=== PATIENT | female | born 1980 | race Caucasian/White ===

== ENCOUNTER 2024-05-16 14:50 | Emergency (ER) | payer OTHER, SELFPAY ==
--- NOTE | ~2024-05-16 | CT_ITS ---
EXAMINATION: CT HEAD WITHOUT CONTRAST CT CERVICAL SPINE WITHOUT CONTRAST CT FACIAL BONES WITHOUT CONTRAST CLINICAL INFORMATION: Fall with head strike COMPARISON: None TECHNIQUE: A noncontrast CT of the head and a noncontrast CT of the cervical spine with sagittal and coronal reformats. Noncontrast CT of the facial bones with sagittal and coronal reformats. This CT examination was performed using dose optimization techniques as appropriate, variously including the following: *Automated exposure control *Adjustment of mA and/or kV according to patient size (this includes techniques or standardized protocols for targeted exams where dose is matched to indication/reason for exam; i.e. extremities or head) *Use of iterative reconstruction technique DLP: 664 mGy*cm FINDINGS: No intra-axial or extra-axial hemorrhage. No acute territorial infarct. Ventricles and sulci appear normal. Preservation of han-white matter differentiation. No mass, mass effect, or midline shift. No fracture. Polypoid mucosal thickening in the maxillary sinuses. The mastoid air cells and visualized paranasal sinuses are otherwise clear. No facial bone fracture. The ostiomeatal units are patent. Normal alignment of the cervical spine. No fracture. No prevertebral soft tissue swelling. Mild multilevel degenerative disc disease and facet arthrosis. Changes are most prominent at the anterior atlantoaxial junction. There is an 8mm oval-shaped calcification at the right anterior aspect between the dens and the anterior arch of C1, possibly representing calcium pyrophosphate crystal deposition (CPPD).. CT/CT head/brain wo IV con IMPRESSION: 1. No acute intracranial abnormality. 2. No facial bone fracture. 3. No cervical spine fracture or traumatic subluxation. Electronically signed by: Jarad Lozoya MD 05/16/2024 05:15 PM [facility]
--- NOTE | ~2024-05-16 | CT_ITS ---
EXAMINATION: CT HEAD WITHOUT CONTRAST CT CERVICAL SPINE WITHOUT CONTRAST CT FACIAL BONES WITHOUT CONTRAST CLINICAL INFORMATION: Fall with head strike COMPARISON: None TECHNIQUE: A noncontrast CT of the head and a noncontrast CT of the cervical spine with sagittal and coronal reformats. Noncontrast CT of the facial bones with sagittal and coronal reformats. This CT examination was performed using dose optimization techniques as appropriate, variously including the following: *Automated exposure control *Adjustment of mA and/or kV according to patient size (this includes techniques or standardized protocols for targeted exams where dose is matched to indication/reason for exam; i.e. extremities or head) *Use of iterative reconstruction technique DLP: 664 mGy*cm FINDINGS: No intra-axial or extra-axial hemorrhage. No acute territorial infarct. Ventricles and sulci appear normal. Preservation of han-white matter differentiation. No mass, mass effect, or midline shift. No fracture. Polypoid mucosal thickening in the maxillary sinuses. The mastoid air cells and visualized paranasal sinuses are otherwise clear. No facial bone fracture. The ostiomeatal units are patent. Normal alignment of the cervical spine. No fracture. No prevertebral soft tissue swelling. Mild multilevel degenerative disc disease and facet arthrosis. Changes are most prominent at the anterior atlantoaxial junction. There is an 8mm oval-shaped calcification at the right anterior aspect between the dens and the anterior arch of C1, possibly representing calcium pyrophosphate crystal deposition (CPPD).. CT/CT facial bones wo IV con IMPRESSION: 1. No acute intracranial abnormality. 2. No facial bone fracture. 3. No cervical spine fracture or traumatic subluxation. Electronically signed by: Jarad Lozoya MD 05/16/2024 05:15 PM [facility]
--- NOTE | ~2024-05-16 | CT_ITS ---
EXAMINATION: CT HEAD WITHOUT CONTRAST CT CERVICAL SPINE WITHOUT CONTRAST CT FACIAL BONES WITHOUT CONTRAST CLINICAL INFORMATION: Fall with head strike COMPARISON: None TECHNIQUE: A noncontrast CT of the head and a noncontrast CT of the cervical spine with sagittal and coronal reformats. Noncontrast CT of the facial bones with sagittal and coronal reformats. This CT examination was performed using dose optimization techniques as appropriate, variously including the following: *Automated exposure control *Adjustment of mA and/or kV according to patient size (this includes techniques or standardized protocols for targeted exams where dose is matched to indication/reason for exam; i.e. extremities or head) *Use of iterative reconstruction technique DLP: 664 mGy*cm FINDINGS: No intra-axial or extra-axial hemorrhage. No acute territorial infarct. Ventricles and sulci appear normal. Preservation of han-white matter differentiation. No mass, mass effect, or midline shift. No fracture. Polypoid mucosal thickening in the maxillary sinuses. The mastoid air cells and visualized paranasal sinuses are otherwise clear. No facial bone fracture. The ostiomeatal units are patent. Normal alignment of the cervical spine. No fracture. No prevertebral soft tissue swelling. Mild multilevel degenerative disc disease and facet arthrosis. Changes are most prominent at the anterior atlantoaxial junction. There is an 8mm oval-shaped calcification at the right anterior aspect between the dens and the anterior arch of C1, possibly representing calcium pyrophosphate crystal deposition (CPPD).. CT/CT cervical spine wo IV con IMPRESSION: 1. No acute intracranial abnormality. 2. No facial bone fracture. 3. No cervical spine fracture or traumatic subluxation. Electronically signed by: Jarad Lozoya MD 05/16/2024 05:15 PM [facility]
[2024-05-16 14:55] VITALS: BP 164/99; PULSE 93; RESP 20; TEMP 36.5; O2SAT 99; BMI 29.3
--- NOTE | 2024-05-16 14:55 | ED_ITS ---
HPI - General Adult General Chief complaint: Fall Stated complaint: facial inj, UC sent for CT scan Time Seen by Provider: 05/16/24 18:15 Source: patient Mode of arrival: ambulatory Limitations: no limitations History of Present Illness ED Provider: Kiera Vaughn PA-C HPI narrative: Patient is a 43 year old assigned female at with no reported medical history presenting to the emergency department today with nasal abrasions. Patient states that last night she was sleeping and fell off her couch, landing on her face. Patient denies any dizziness, lightheadedness, abdominal pain, nausea, vomiting, fever, chills, blurry vision, double vision, loss of vision, chest pain, difficulty breathing, shortness of breath, back pain, night sweats, pain with urination, increased urinary frequency, increased urinary urgency, blood in her urine or stool, syncope or a near syncopal episode, bowel incontinence, bladder incontinence, or any other complaints at this time. Relieving factors: none Exacerbating factors: none Associated symptoms: denies other symptoms Treatments prior to arrival: none Related Data Allergies Allergy/AdvReac Type Severity Reaction Status Date / Time No Known Allergies Allergy Mild UNKNOWN Verified 05/16/24 14:57 Review of Systems Constitutional: Constitutional: Reports no additional constitutional complaints, Denies chills, Denies fever(s) and Denies night sweats Eyes: Eyes: Reports no additional eye complaints, Denies blurry vision, Denies change in vision, Denies diplopia, Denies eye discharge, Denies loss of vision and Denies eye pain ENT: Denies dizziness and Reports nasal trauma Comments: nasal abrasions Cardiovascular: Cardiovascular: Reports no additional cardiovascular complaints, Denies chest pain, Denies lightheadedness, Denies Loss of Consciousness and Denies dyspnea Respiratory: Respiratory: Reports no additional respiratory complaints and Denies dyspnea Gastrointestinal: Gastrointestinal: Reports no additional gastrointestinal complaints, Denies abdominal pain, Denies melena, Denies hematochezia, Denies change in bowel habits and Denies change in stool character Genitourinary: Genitourinary: Denies hematuria, Denies urinary frequency, Denies dysuria, Denies urinary incontinence, Denies urinary hesitancy and Denies urinary urgency Musculoskeletal: Musculoskeletal: Reports no additional musculoskeletal complaints, Denies numbness and Denies tingling Neurologic: Denies dizziness, Denies loss of vision, Denies numbness and Yunior es tingling Psychiatric: Psychiatric: Reports no additional psychiatric complaints Endocrine: Endocrine: Reports no additional endocrine complaints Hematologic/Lymphatic: Hematologic/Lymphatic: Reports no additional hematologic/lymphatic complaints Allergic/Immunologic: Allergic/Immunologic: Reports no additional allergic/immunologic complaints PMFSH Past Medical History Attestation statement: The following information was validated with the patient. Source: old records reviewed and nursing notes reviewed Social History Social History Advance Directives: No Advance Directives Information Provided: No Physical Exam ED Vital Signs: Vital Signs - 24 hr 05/16/24 14:55 05/16/24 18:00 Temperature 97.7 F 98.3 F Pulse Rate 93 88 Respiratory Rate 20 16 Blood Pressure 164/99 H 152/92 H Pulse Oximetry 99 99 Oxygen Delivery Method Room Air Room Air BMI result Body Mass Index 29.3 Const General: cooperative, no acute distress, alert and awake Nutritional Appearance: well nourished Orientation/consciousness: patient oriented x3 Limitations: no limitations HENMT Head: Yes normal to inspection and Yes atraumatic Ears: hearing grossly normal bilaterally and external ears normal General nose exam: no nasal discharge noted, no epistaxis and Other nasal findings present (multiple abrasions to the nose - no active bleeding or gaping) Face and sinus: Yes normal facial exam, No abrasion and No laceration Mouth: Normal oral and palatal mucosa present, no drooling and no muffled voice Eyes General: appearance normal, both eyes and all related structures Periorbital: periorbital findings normal Eyelids: Yes eyelids normal Conjunctivae: conjunctivae normal Pupils: Equal, round and reactive pupils present EOM: EOMs intact bilaterally Neck Neck: Yes normal visual inspection, Yes full ROM and Yes no lymphadenopathy Chest Chest palpation & inspection: normal inspection of the chest Resp Effort & Inspection: normal respiratory effort and able to speak in complete sentences GI Inspection: Yes normal to inspection Neuro General: patient oriented x3 and moves all extremities Cranial nerves: Yes Equal, round and reactive pupils present Cognition (Neuro): normal cognition Extrem General: Yes normal to inspection, Yes full ROM and Yes capillary refill normal Psych Appearance: grossly normal Mental Status: mental status grossly normal Affect: normal affect Attitude: cooperative Thought process: Normal thought process present Thought content: Normal thought content present Insight: Good insight present (Psych) Course Course Course Narrative: This is a rapid medical exam performed by Chacha Cazares NP: Additional HPI, ROS, PE not included below will be deferred to primary provider. Patient is a 43-year-old female presenting to the ED from urgent care with complaint of facial pain and swelling. States she was drinking alcohol last night, laying on the couch, fell off. She does not remember this but her parents live downstairs and heard her fall, came upstairs right away. No LOC. States she went to work this morning, pain is minimal. Plan: CT head, neck and facial bones Medical Decision Making Medical Decision Making MDM Narrative: Patient is a 43 year old assigned female at with no reported medical history presenting to the emergency department today with nasal abrasions after a fall. Patient's physical exam was as noted in the physical exam portion of this note. Patient's CT facial bones, head, and c-spine showed no acute process. I explained my physical exam findings as well as all test results to the patient. I answered all questions asked by the patient. I stressed the importance of the patient taking her medication as directed (either prescribed or as the over the counter packaging recommends). I stressed the importance of the patient following up with her primary care provider. I stressed the importance of the patient returning to the emergency department immediately if her symptoms were to worsen or if she were to develop any dizziness, shortness of breath, difficulty breathing, chest pain, blurry vision, loss of vision, nausea, vomiting, abdominal pain, fever, chills, back pain, or any other complaints. Patient verbalized agreement and understanding with this treatment plan and discharge. Differential Diagnosis Differential Diagnoses: The differential diagnosis associated with the presentation includes Nose abrasion Fall Head strike Intracranial injury Concussion Admission/Observation Consideration of admission/observation: Escalation of care including admission/observation considered Patient would have been admitted to the hospital had her work up had any findings where hospital admission was appropriate and her clinical presentation warranted hospital admission. Independent Interpretation I performed an independent interpretation of an: CT Scan Interpretation: My interpretation is in agreement with the radiologist's impression of these imaging studies. EXAMINATION: CT HEAD WITHOUT CONTRAST CT CERVICAL SPINE WITHOUT CONTRAST CT FACIAL BONES WITHOUT CONTRAST CLINICAL INFORMATION: Fall with head strike COMPARISON: None TECHNIQUE: A noncontrast CT of the head and a noncontrast CT of the cervical spine with sagittal and coronal reformats. Noncontrast CT of the facial bones with sagittal and coronal reformats. This CT examination was performed using dose optimization techniques as appropriate, variously including the following: *Automated exposure control *Adjustment of mA and/or kV according to patient size (this includes techniques or standardized protocols for targeted exams where dose is matched to indication/reason for exam; i.e. extremities or head) *Use of iterative reconstruction technique DLP: 664 mGy*cm FINDINGS: No intra-axial or extra-axial hemorrhage. No acute territorial infarct. Ventricles and sulci appear normal. Preservation of han-white matter differentiation. No mass, mass effect, or midline shift. No fracture. Polypoid mucosal thickening in the maxillary sinuses. The mastoid air cells and visualized paranasal sinuses are otherwise clear. No facial bone fracture. The ostiomeatal units are patent. Normal alignment of the cervical spine. No fracture. No prevertebral soft tissue swelling. Mild multilevel degenerative disc disease and facet arthrosis. Changes are most prominent at the anterior atlantoaxial junction. There is an 8mm oval-shaped calcification at the right anterior aspect between the dens and the anterior arch of C1, possibly representing calcium pyrophosphate crystal deposition (CPPD).. CT/CT head/brain wo IV con IMPRESSION: 1. No acute intracranial abnormality. 2. No facial bone fracture. 3. No cervical spine fracture or traumatic subluxation. Electronically signed by: Jarad Lozoya MD 05/16/2024 05:15 PM [facility] Dictated By: Jarad Lozoya MD Signed By: Electronically signed by Jarad Lozoya MD 05/16/24 2685 Radiology Impression Discussion of test interpretation with radiology: I have reviewed the radiologist's reading. Discharge Plan Discharge Clinical Impression: Abrasion of nose Patient Disposition: Home, Self-Care Instructions: Abrasion (ED) Additional Instructions: Follow up with your primary care provider. Return to the emergency department immediately if your symptoms worsen or if you develop any dizziness, shortness of breath, difficulty breathing, chest pain, blurry vision, loss of vision, nausea, vomiting, abdominal pain, fever, chills, back pain, or any other complaints. Referrals: [facility] Family [facility] [Provider Group] (Call to establish and follow up with a primary care provider. If you already have a primary care provider, please follow up with them.) [facility] Primary Care, [facility] [Provider Group] (Call to establish and follow up with a primary care provider. If you already have a primary care provider, please follow up with them.) [facility] Primary Care,[facility] [Provider Group] (Call to establish and follow up with a primary care provider. If you already have a primary care provider, please follow up with them.) Print Language: Khmer
[2024-05-16 18:00] VITALS: BP 152/92; PULSE 88; RESP 16; TEMP 36.8; O2SAT 99
[2024-05-16 18:45] VITALS: BP 152/92; PULSE 88; RESP 16; TEMP 36.8; O2SAT 99
== END 2024-05-16 18:46 | disposition home or self-care (01) ==
PROVIDERS: Emergency Provider Emergency Medicine
DX: S00.31XA Abrasion of nose, initial encounter (principal); W08.XXXA Fall from other furniture, initial encounter; Y93.9 Activity, unspecified; Y92.9 Unspecified place or not applicable; Y99.9 Unspecified external cause status
CPT/HCPCS: 70450; 70486; 72125; 99283; 99284